=== PATIENT | male | born 1935 | race Caucasian/White ===

== ENCOUNTER 2016-09-05 08:05 | Emergency (ER) | payer MEDICARE ==
[~2016-09-05] VITALS: Ht 177.8 cm; Wt 82.0 kg
[~2016-09-05 08:05] MED LIST: AMOXICILLIN500 MG PO; ANTIVERT OR; AUGMENTIN500TAB PO; CARDIZEM CD 180 PO; CARTIA XT180 MG/24 PO; COUMADIN5 MG PO; GABAPENTIN300 MG PO; NO HOME MEDS; REGLAN10 MG OR; SYMBICORT1 AE1 IN; TAMSULOSIN0.4 MG PO; VENTOLIN HFA IN; WARFARIN5 MG PO; WARFARIN7.5 MG PO
[2016-09-05 08:37] VITALS: BP 134/77
== END 2016-09-05 08:47 | disposition home or self-care (01) ==
LOC: ED 08:05
DX: S81.802D Unspecified open wound, left lower leg, subsequent encounter (principal); X58.XXXD Exposure to other specified factors, subsequent encounter

== ENCOUNTER 2019-10-06 | Emergency (ER) | payer MEDICARE ==
[2019-10-06] MEDS ORDERED: LEVOTHYROXINE25 MCG PO (20:06)
[2019-10-06] MEDS ORDERED: FINASTERIDE5 MG PO (20:07)
[2019-10-06 20:49] LABS: PROTHROMBIN TIME 57.4 SECONDS (9.0-12.5)
== END 2019-10-06 21:07 | disposition home or self-care (01) ==
PROVIDERS: Family Medicine
PROC: 0HQKXZZ Repair Right Lower Leg Skin, External Approach (ICD-10-PCS; principal; 2019-10-06)
DX: S81.811A Laceration without foreign body, right lower leg, initial encounter (principal); D68.8 Other specified coagulation defects; I10 Essential (primary) hypertension; T45.515A Adverse effect of anticoagulants, initial encounter; W45.8XXA Other foreign body or object entering through skin, initial encounter; Y93.9 Activity, unspecified; Y92.009 Unspecified place in unspecified non-institutional (private) residence as the place of occurrence of the external cause

== ENCOUNTER 2023-08-02 16:32 | Emergency (ER) | payer MEDICARE ==
[~2023-08-02] VITALS: Ht 177.8 cm; Wt 81.8 kg
[2023-08-02] VITALS (10 sets, daily range): BP systolic 136–161; BP diastolic 61–83
[~2023-08-02 16:32] MED LIST changes: +ARICEPT PO; +ATORVASTATIN CA10 MG PO; +FINASTERIDE5 MG PO; +LASIX 20 MG TAB20 MG PO; +LEVOTHYROXINE25 MCG PO
[2023-08-02] MEDS ORDERED: GABAPENTIN100 MG PO (17:08)
[2023-08-02] MEDS ORDERED: LEVOTHYROXIN50 MCG PO (17:08)
[2023-08-02 19:08] LABS: BASO% 0.7 % (0-3); EOS% 1.4 % (0-8); HEMATOCRIT 45.7 % (39.0-50.0); HEMOGLOBIN 14.9 g/dl (14.0-18.0); IMMATURE GRANULOCYTES 0.4 % (0.0-5.0); LYMPH% 23.7 % (15-41); MEAN CELL VOLUME 98.1 fL CALC (80.0-100.0); MEAN CORPUSCULAR HGB CONC 32.6 g/dL CAL (32.0-36.0); MONO% 10.1 % (2-13); NEUT# 3.61 thou/uL (1.82-7.42); NEUT% 63.7 % (42-76); RED BLOOD COUNT 4.66 mill/uL (4.70-6.10); RED CELL DISTRI WIDTH 14.1 % (11.5-15.5)
[2023-08-02 19:20] LABS: INTERNATIONAL NORMALIZED RATIO 4.6 RATIO (0.7-1.3); PROTHROMBIN TIME 40.9 SECONDS (9.0-12.5)
[2023-08-02 19:21] LABS: ALBUMIN 3.6 g/dL (3.2-5.0); BILIRUBIN, TOTAL 0.5 mg/dL (0.2-1.3); CREATININE 1.4 mg/dL (0.7-1.3); POTASSIUM 4.3 mmol/l (3.5-5.1); TOTAL PROTEIN 6.7 g/dL (6.3-8.2)
[2023-08-02] MEDS ORDERED: PROTHROMBIN COMPLEX CONCENTRAT 500 IU/VIAL VIAL IV ONE (19:25)
[2023-08-02] MEDS ORDERED: SODIUM CHLORIDE 0.9% 50 ML IV ONE (19:45)
== END 2023-08-02 19:46 | disposition short-term general hospital (02) ==
LOC: ED 16:32
PROVIDERS: Family Medicine
DX: S06.6X0A Traumatic subarachnoid hemorrhage without loss of consciousness, initial encounter (principal); S80.211A Abrasion, right knee, initial encounter; S60.511A Abrasion of right hand, initial encounter; F03.90 Unspecified dementia, unspecified severity, without behavioral disturbance, psychotic disturbance, mood disturbance, and anxiety; I10 Essential (primary) hypertension; I48.91 Unspecified atrial fibrillation; W01.0XXA Fall on same level from slipping, tripping and stumbling without subsequent striking against object, initial encounter; Z79.01 Long term (current) use of anticoagulants; Z87.891 Personal history of nicotine dependence; Z86.011 Personal history of benign neoplasm of the brain
CPT/HCPCS: J1953